=== PATIENT | male | born 1985 | race Caucasian/White ===

== ENCOUNTER → 2016-09-12 | Outpatient (CLI) | payer OTHER ==
--- NOTE | 2016-09-14 18:37 | SLEEPCENT ---
DATE OF PROCEDURE: 09/12/2016 ORDERED BY: Jaymie Serrano and Moiz Gill at [facility] Nocturnal polysomnography was performed due to concern for the obstructive sleep apnea syndrome in this patient with excessive somnolence, snoring and nonrestorative sleep with morning headaches. 7 hours and 15 minutes of data were reviewed. There were 399 minutes of sleep identified. Sleep latency was normal at 9.5 minutes. Rapid eye movement (REM) latency was normal at 55 minutes. Sleep architecture showed fair progression. There was some fragmentation noted. Six REM periods were appreciated. Overall sleep efficiency was 92.9%. The patient's EKG showed a sinus rhythm with an average heart rate of 80 beats per minute. EEG showed normal waveforms for awake and sleep. There were 27 respiratory events identified of 10 seconds in duration or greater for an apnea-hypopnea index at the upper limits of normal, 4.1 events per hour. The events seen were primarily in the supine position. Snoring was noted throughout the study and respiratory-related arousals occurred 7.2 times per hour. Oxygen desaturations with the respiratory events were seen into the upper 80s with minimal limb activity identified and remaining measures of sleep physiology were normal. IMPRESSION: Abnormal nocturnal polysomnography with snoring and frequent respiratory arousal. RECOMMENDATIONS: Sleep position retraining for avoidance of the supine posture is recommended. Should the patient's symptoms persist, re-testing has been shown more sensitive to identify mild disease and as this patient's apnea-hypopnea index fell just short of that required for the diagnosis of sleep apnea (5 per hour), close clinical followup is recommended.
== END ==
LOC: M SLEEP 19:43
PROVIDERS: ATTEND Nurse Practitioner Adult Health
DX: R06.83 Snoring (principal)

== ENCOUNTER → 2016-11-22 | Outpatient (CLI) | payer OTHER ==
--- NOTE | 2016-11-27 06:13 | SLEEPCENT ---
DATE OF PROCEDURE: 11/22/2016 ORDERED BY: AFUA Ribeiro Nocturnal polysomnography was performed for re-evaluation of sleep physiology in this patient with previous testing showing respiratory arousals and mild disease. <<0:47>> . 7 hours and 14 minutes of data were reviewed. There were 381 minutes of sleep identified. Sleep latency was prolonged at 21 minutes. Rapid eye movement (REM ) was normal at 70 minutes. Sleep architecture showed some fragmentation. Sleep progression was good. There were 4 REM periods appreciated. Overall sleep efficiency was 90%. The patient's electrocardiogram (EKG) showed a sinus rhythm with an average heart rate of 70 beats per minute. EEG showed normal waveforms for awake and sleep stages. There were 35 respiratory events identified of 10 seconds in duration or greater during this study for an apnea hypopnea index of 5.5. The events were primarily obstructive, more frequent but not exclusive to supine posture. Arousals from respiratory events occurred 3.6 times per hour and oxygen desaturations were seen to 89%. There was some limb activity, but arousals from limb events occurred only 2.2 times per hour. IMPRESSION: Mild positional obstructive sleep apnea syndrome (G47.33). RECOMMENDATION: Sleep position retraining for avoidance of the supine posture may be helpful. If the patient's symptoms are persistent despite position retraining, referral back to the sleep disorder center for pressure therapy should be considered. edited: 11/27/2016 [id number] tkf MTDD
== END ==
LOC: M SLEEP 19:38
PROVIDERS: ATTEND Nurse Practitioner Adult Health
DX: G47.30 Sleep apnea, unspecified (principal)

== ENCOUNTER → 2017-01-06 | Outpatient (CLI) | payer OTHER ==
--- NOTE | 2017-01-08 20:21 | SLEEPCENT ---
DATE OF PROCEDURE: 01/06/2017 ORDERED BY: Jaymie Serrano Nocturnal polysomnography was performed for the titration of pressure therapy in this patient with obstructive sleep apnea syndrome, apnea-hypopnea index 5.5. For testing, the patient was fit with a [employer]Med Quattro full face mask of medium size, 4 cm of water pressure were applied to the circuit and the lights were extinguished. 6 hours and 40 minutes of data were reviewed. There were 322 minutes of sleep identified. Sleep latency was mildly prolonged at 32 minutes. Rapid eye movement (REM) latency was short at 69 minutes. Sleep architecture improved with pressure therapy. There were four REM periods appreciated. Overall sleep efficiency was 81.8% The patient's EKG showed a sinus rhythm with an average heart rate of 68 beats per minute. EEG showed reasonably normal waveforms for awake and sleep stages. Respiratory events were found best palliated with continuous positive airway pressure (CPAP) at a pressure of +7. CPAP tolerance was reasonably good. IMPRESSION: Obstructive sleep apnea syndrome (G47.33). RECOMMENDATION: Nightly use of pressure therapy 7 cm of water. Copy To: Moiz Gill
== END ==
LOC: M SLEEP 19:50
PROVIDERS: ATTEND Nurse Practitioner Adult Health
DX: G47.33 Obstructive sleep apnea (adult) (pediatric) (principal)